=== PATIENT | female | born 1990 | race Caucasian/White ===

== ENCOUNTER 2019-07-11 18:11 | Emergency (ER) | payer OTHER ==
[2019-07-11 21:01] VITALS: TEMP 98.2; O2SAT 99
[2019-07-11 21:03] VITALS: BP 118/75
--- NOTE | 2019-07-12 19:21 | EDPHYS ---
Physician Documentation [facility] Name: Eleanor Magaña Age: 28 yrs Sex: Female : 1990 Arrival Date: 07/11/2019 Time: 18:13 Bed 19 Private MD: ED Physician Mauricio Mojica HPI: 07/10 20:37 This 28 yrs old Female presents to ER via Ambulatory with complaints of Elbow cp Problem- infection- 30 wks preg. 20:37 The patient or guardian complains of swelling, tenderness, erythema. cp 20:37 The complaints affect the left elbow. cp 20:37 Onset: The symptoms/episode began/occurred 3 day(s) ago. cp 20:37 Treatment prior to arrival includes: no previous treatment. Associated signs and cp symptoms: Pertinent positives: erythema, warmth, Pertinent negatives: decreased range of motion, fever. 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 - Social history:: Smoking status: Patient reports the use of cigarette tobacco products, denies chronic smoking, but will smoke occasionally. ROS: 20:38 Constitutional: Negative for body aches, chills, fever. cp 20:38 Eyes: Negative for injury, pain, redness, and discharge. cp 20:38 Respiratory: Negative for cough, shortness of breath, wheezing. 20:38 Abdomen/GI: Negative for abdominal pain, nausea, vomiting, and diarrhea, constipation. 20:38 : Negative for urinary symptoms, vaginal bleeding. 20:38 Skin: Positive for erythema, swelling, of the left elbow. 20:38 All other systems are negative. Exam: 20:39 Constitutional: The patient appears in no acute distress, alert, awake, non-toxic, well cp developed, well nourished. 20:39 Chest/axilla: Inspection: normal. cp 20:39 Cardiovascular: Rate: normal. 20:39 Skin: abscess, not appreciated, cellulitis, that is mild, well demarcated, on the left elbow. Vital Signs: 18:47 BP 101 / 86; Pulse 83; Resp 16 S; Temp 96.7(TE); Pulse Ox 100% on R/A; Weight 56.7 kg ca1 (R); Height 5 ft. 2 in. (157.48 cm) (R); Pain 4/10; 20:12 BP 111 / 68; Pulse 82; Resp 16; Temp 98.2; Pulse Ox 99% on R/A; dh4 20:49 BP 118 / 75; Pulse 80; Resp 17; Pulse Ox 99% ; rr5 18:47 Body Mass Index 22.86 (56.70 kg, 157.48 cm) ca1 MDM: 20:33 Patient medically screened. cp 20:40 Data reviewed: vital signs, nurses notes, and as a result, I will discharge patient. cp 20:40 Differential diagnosis: cellulitis, abscess. Counseling: I had a detailed discussion cp with the patient and/or guardian regarding: the historical points, exam findings, and any diagnostic results supporting the discharge/admit diagnosis, to return to the emergency department if symptoms worsen or persist or if there are any questions or concerns that arise at home. Administered Medications: No medications were administered Disposition: 20:45 Chart complete. cp 07/11 02:17 Co-signature as Attending Physician, Mauricio Mojica MD. pknaomi Disposition: 07/11/19 20:40 Discharged to Home. Impression: Cellulitis of left upper limb. - Condition is Stable. - Discharge Instructions: Cellulitis, Adult. - Prescriptions for Clindamycin HCl 300 mg Oral Capsule - take 1 capsule by ORAL route every 6 hours for 10 days; 40 capsule. - Medication Reconciliation Form, Thank You Letter, Antibiotic Education, Prescription Opioid Use form. - Follow up: Private Physician; When: 2 - 3 days; Reason: Worsening of condition. - Problem is new. - Symptoms are unchanged. Signatures: Mauricio Mojica MD MD pkl Thang Antunez PA PA cp Beni Ruiz RN RN rr5 Jailyn Coyle RN RN ca1 Corrections: (The following items were deleted from the chart) 07/10 20:52 20:40 07/11/2019 20:40 Discharged to Home. Impression: Cellulitis of left upper limb. rr5 Condition is Stable. Forms are Medication Reconciliation Form, Thank You Letter, Antibiotic Education, Prescription Opioid Use. Follow up: Private Physician; When: 2 - 3 days; Reason: Worsening of condition. Problem is new. Symptoms are unchanged. cp
--- NOTE | 2019-07-12 19:21 | ER ---
Nurse's Notes [facility] Name: Eleanor Magaña Age: 28 yrs Sex: Female : 1990 Arrival Date: 07/11/2019 Time: 18:13 Bed 19 Private MD: Diagnosis: Cellulitis of left upper limb Presentation: 07/10 18:47 Chief complaint: Patient states: Rash on L elbow since 3 days ago. Redness, swelling ca1 noted. Hot to touch with a little pus-filled bump in the center. Denies fever. Coronavirus screen: Proceed with normal triage. Patient denies a cough. Patient denies shortness of breath or difficulty breathing. Patient denies measured and/or subjective temperature greater than 100.4F prior to today's visit. Patient denies travel on a cruise ship or to a country the [facility] currently lists as an affected area. Patient denies contact with known and/or suspected case of COVID-19. Ebola Screen: Patient negative for fever greater than or equal to 101.5 degrees Fahrenheit, and additional compatible Ebola Virus Disease symptoms Patient denies exposure to infectious person. Patient denies travel to an Ebola-affected area in the 21 days before illness onset. No symptoms or risks identified at this time. Initial Sepsis Screen: Does the patient meet any 2 criteria? No. Patient's initial sepsis screen is negative. Does the patient have a suspected source of infection? No. Patient's initial sepsis screen is negative. Risk Assessment: Do you want to hurt yourself or someone else? Patient reports no desire to harm self or others. Onset of symptoms was July 11, 2019. 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 - Social history:: Smoking status: Patient reports the use of cigarette tobacco products, denies chronic smoking, but will smoke occasionally. Screenin:09 Abuse screen: Denies threats or abuse. Denies injuries from another. Nutritional rr5 screening: No deficits noted. Tuberculosis screening: No symptoms or risk factors identified. Fall Risk None identified. Total Rome Fall Scale indicates No Risk (0-24 pts). Assessment: 20:00 General: Appears in no apparent distress. comfortable, Behavior is calm, cooperative, rr5 appropriate for age. 20:00 Pain: Complains of pain in left elbow Pain does not radiate. Pain currently is 4 out of rr5 10 on a pain scale. Quality of pain is described as aching, Pain began gradually, Is intermittent. Neuro: Level of Consciousness is awake, alert, obeys commands, Oriented to person, place, time, situation. Cardiovascular: Capillary refill < 3 seconds Patient's skin is warm and dry. Respiratory: Airway Respiratory effort is even, unlabored, Respiratory pattern is regular, symmetrical. GI: No signs and/or symptoms were reported involving the gastrointestinal system. : Reports . EENT: No signs and/or symptoms were reported regarding the EENT system. Derm: Skin temperature is warm redness left elbow with a pinpoint white spot at the center. Musculoskeletal: Circulation, motion, and sensation intact. Capillary refill < 3 seconds. 20:46 Reassessment: Patient appears in no apparent distress at this time. Patient is alert, rr5 oriented x 3, equal unlabored respirations, skin warm/dry/pink. discharge instruction given and explained without complaints made. Vital Signs: 18:47 BP 101 / 86; Pulse 83; Resp 16 S; Temp 96.7(TE); Pulse Ox 100% on R/A; Weight 56.7 kg ca1 (R); Height 5 ft. 2 in. (157.48 cm) (R); Pain 4/10; 20:12 BP 111 / 68; Pulse 82; Resp 16; Temp 98.2; Pulse Ox 99% on R/A; dh4 20:49 BP 118 / 75; Pulse 80; Resp 17; Pulse Ox 99% ; rr5 18:47 Body Mass Index 22.86 (56.70 kg, 157.48 cm) ca1 ED Course: 18:13 Patient arrived in ED. as 18:50 Triage completed. ca1 18:51 Arm band placed on right wrist. ca1 20:02 Beni Ruiz RN is Primary Nurse. rr5 20:09 Patient has correct armband on for positive identification. Bed in low position. Call rr5 light in reach. Pulse ox on. NIBP on. 20:26 Thang Antunez PA is PHCP. cp 20:26 Mauricio Mojica MD is Attending Physician. cp 20:50 No provider procedures requiring assistance completed. Patient did not have IV access rr5 during this emergency room visit. Administered Medications: No medications were administered Outcome: 20:40 Discharge ordered by . cp 20:50 Discharged to home ambulatory. rr5 20:50 Condition: stable 20:50 Discharge instructions given to patient, Instructed on discharge instructions, follow up and referral plans. medication usage, Demonstrated understanding of instructions, follow-up care, medications, Prescriptions given X 1. 20:52 Patient left the ED. rr5 Signatures: Marlena Prince as Thang Antunez PA PA cp Beni Ruiz RN RN rr5 Jailyn Coyle RN RN [facility]
== END 2019-07-11 20:52 | disposition home or self-care (01) ==
LOC: ER 18:11
DX: O26.893 Other specified pregnancy related conditions, third trimester (principal); L03.114 Cellulitis of left upper limb; O99.333 Smoking (tobacco) complicating pregnancy, third trimester; Z3A.30 30 weeks gestation of pregnancy
CPT/HCPCS: 99283